=== PATIENT | male | born 1980 | race African-American/Black ===

== ENCOUNTER 2016-10-14 08:32 | Emergency (ER) | payer SELFPAY ==
[2016-10-14] MEDS ORDERED: Ibuprofen 800 MG TAB ONE (08:58)
--- NOTE | 2016-10-14 09:11 | ERRECORD ---
[facility] EMERGENCY RECORD HPI TOOTHACHE (09:00 JL) CHIEF COMPLAINT: Patient presents for evaluation of Pt with 2 days of right jaw/gum pain. Noted a small clogged pore on the jaw in the same area with some tednerness but most of the pain in deeper. He dscribes pressure on his lower teeth. No fevers or chills. He had some nausea last pm that resolved. Tried tylenol and excedrin but no relief. HISTORIAN: History provided by patient. LOCATION: Symptoms are localized. TEETH: lower right 3rd molar (#32),. QUALITY: Pain is dull in nature. TIME COURSE: Gradual onset of symptoms, Symptoms are worsening, are constant. ASSOCIATED WITH: No associated chills, No associated dysphagia, Associated with facial pain, No associated facial swelling, No associated fever, No associated recent dental procedure, No associated vomiting. EXACERBATED BY: Patient's condition exacerbated by nothing. RELIEVED BY: Patient's condition relieved by nothing. ROS (09:02 [facility]) CONSTITUTIONAL: Historian denies chills, denies fever. ENT: Historian denies rhinorrhea, denies sore throat. RESPIRATORY: Historian denies cough, denies shortness of breath. GI: Historian denies abdominal pain, reports nausea, denies vomiting. resolved. GENITOURINARY MALE: Historian denies dysuria, denies hematuria. NEUROLOGIC: Historian denies dizziness, denies headache. PAST MEDICAL HISTORY MEDICAL HISTORY: Past medical history includes pulmonary disease, asthma. (08:43 [facility]) MALE SURGICAL HISTORY: Patient has no surgical history. (08:43 [facility]) PSYCHIATRIC HISTORY: No previous psychiatric history. (08:43 [facility]) SOCIAL HISTORY: Patient denies alcohol use, Patient denies drug use, Patient currently uses tobacco, smokes cigarettes, Light tobacco smoker. (08:43 [facility]) FAMILY HISTORY: No known family hisotry. (08:43 [facility]) NOTES: Nursing records reviewed, Agree with nursing records. (09:04 JL) KNOWN ALLERGIES NONE (Unconfirmed) CURRENT MEDICATIONS No recorded medications VITAL SIGNS (08:38 [facility]) VITAL SIGNS: BP: 124/86, Pulse: 71, Resp: 18, Temp: 98.3 (Oral), Pain: 5, O2 sat: 98 on Room Air, Time: 10/14/2016 08:38. &a-1R&a+25V*p+0X*l9110Y*c152B*c15G*c2P*p-0X&a-25V&a+1RName: Ethan Camilo : M36 MedRec: [id number] AcctNum: [id number] Prepared: FriOct 14, 2016 09:09 by Interface Page [address] [facility] EMERGENCY RECORD PHYSICAL EXAM (09:02 [facility]) CONSTITUTIONAL: Vital signs reviewed, Patient appears non toxic, Patient alert and oriented to person, place and time. EYES: Eye exam included findings of eyelids normal to inspection, Pupils equally round and reactive to light, Conjunctiva normal. ENT: Pharynx exam normal, Uvula exam normal, Tonsil exam normal, Mouth exam normal, mucous membranes moist, Teeth with, Pt was indicating his last molar but on exam his wisdom tooth on the right is just peeking through the gum. Minimal swelling. No redness. No cavity. With palpation of the tip of the wisdom tooth pt reports that is exactly where his pain is coming from, he just hadn't pushed there before and couldn't identify it. NECK: Neck exam included findings of normal range of motion, Trachea midline, no cervical adenopathy. RESPIRATORY CHEST: Respiratory exam included findings of no respiratory distress, Breath sounds clear, No wheezing, No rales, No rhonchi, Chest exam included findings of chest movement symmetrical. CARDIOVASCULAR: Cardiovascular exam included findings of heart rate regular rate and rhythm, Heart sounds normal. NEURO: Luiz coma scale 15, Neuro exam findings include patient oriented to person, place and time, Speech normal. PSYCHIATRIC: Normal affect. MEDICATION ADMINISTRATION SUMMARY Drug Name: ibuprofen, Dose Ordered: 800 mg, Route: Oral, Status: Given, Time: 08:59 10/14/2016, Detailed record available in Medication Service section. DOCTOR NOTES (09:05 [facility]) TEXT: Instructed the patient to f/u with dentist to eval his wisdom tooth to see if it can come through or if it needs removal. PROBLEM LIST No recorded problems DIAGNOSIS (08:59 [facility]) FINAL: PRIMARY: Toothache. PRESCRIPTION (08:58 JL) acetaminophen-codeine: TABLET : 300 mg-30 mg : ORAL : Quantity: 1-2 Unit: tab(s) Route: ORAL Schedule: every 6 hours PRN Dispense: 15 May substitute. Refills: No Refills . NOTES: No Refills. ibuprofen: TABLET : 800 mg : ORAL : Quantity: 1 Unit: tab(s) Route: ORAL Schedule: every 8 hours PRN Dispense: 30 May substitute. Refills: No Refills . NOTES: ^s=No Refills &a-1R&a+25V*p+0X*e1713B*c152B*c15G*c2P*p-0X&a-25V&a+1RName: Ethan Camilo : M36 MedRec: [id number] AcctNum: [id number] Prepared: FriOct 14, 2016 09:09 by Interface Page [address] [facility] EMERGENCY RECORD No Refills. DISPOSITION PATIENT: Disposition Type: Discharge, Disposition: *Discharge Home. (08:59 PAULINE) Patient left the department. (09:05 [facility]) Crump: PAULINE=MD Pablo, Higinio [facility]=KIA Youssef, Zeynep &a-1R&a+25V*p+0X*a0289J*c152B*c15G*c2P*p-0X&a-25V&a+1RName: Ethan Camilo DOB: M[birth year] MedRec: [id number] AcctNum: [id number] Prepared: FriOct 14, 2016 09:09 by Interface Page 3 of 3 pMD MTDD
--- NOTE | 2016-10-14 09:18 | PICIS ---
[facility] EMERGENCY RECORD TRIAGE (FriOct 14, 2016 08:41 [facility]) TRIAGE NOTES: Pt reports head and R jaw pain for 2 days. He has been taking OTC pain medication @ home and the pain is becoming intractable. Reporting a "squishy" feeling over his R jaw. (FriOct 14, 2016 08:41 [facility]) PATIENT: NAME: Ethan Camilo, AGE: 36, GENDER: male, : [facility] 1980, TIME OF GREET: FriOct 14, 2016 08:33, PREFERRED LANGUAGE: Kinyarwanda, ETHNICITY: Not or , ECODE BILLING MAP: [facility], SSN: [id number], Zip Code: [address], PHONE: , , , PERSON ID: [id number], PCP: Lopez [facility]. (FriOct 14, 2016 08:41 [facility]) KG WEIGHT: 74.8 (est.). (08:59 [facility]) COMPLAINT: RIGHT SIDE HEAD AND JAW PAIN. (FriOct 14, 2016 08:41 [facility]) ADMISSION: URGENCY: 4 Non Urgent, ADMISSION SOURCE: Home, TRANSPORT: Walk-in, BED: TRIAGE. (FriOct 14, 2016 08:41 [facility]) IMMUNIZATIONS: Flu vaccine not up to date, Tetanus not up to date. (08:43 [facility]) SIRS SCORING: Heart Rate 55-109 (0), Temp range 96.8-101.1 (0), respiratory rate 12-24 (0), Mental Status altered: no (0). (08:43 [facility]) TRIAGE SCREENING: Patient denies suicidal ideation, Patient denies presence of domestic violence. (08:43 [facility]) PROVIDERS: TRIAGE NURSE: Zeynep Youssef RN. (FriOct 14, 2016 08:41 [facility]) VITAL SIGNS: BP 124/86, Pulse 71, Resp 18, Temp 98.3, (Oral), Pain 5, O2 Sat 98, on Room Air, Time 10/14/2016 08:38. (08:38 [facility]) PREVIOUS VISIT ALLERGIES: NONE. (FriOct 14, 2016 08:41 [facility]) NONE. (08:43 [facility]) KNOWN ALLERGIES NONE (Unconfirmed) CURRENT MEDICATIONS No recorded medications VITAL SIGNS (08:38 [facility]) VITAL SIGNS: BP: 124/86, Pulse: 71, Resp: 18, Temp: 98.3 (Oral), Pain: 5, O2 sat: 98 on Room Air, Time: 10/14/2016 08:38. NURSING ASSESSMENT: HEADACHE (08:53 [facility]) CONSTITUTIONAL: Complex assessment performed, Patient arrives ambulatory, Gait steady, History obtained from patient, Patient appears comfortable, Patient cooperative, Patient alert, Oriented to person, place and time, Skin warm, Skin dry, Skin normal in color, Mucous membranes pink, Mucous membranes moist, Patient is well-groomed, Pt reporting R sided jaw, upper neck, and head pain for 2 days. He has been taking OTC NSAIDS @ home but pain is becoming intractable. Pt als reporting tenderness over R lymph nodes over jaw. &a-1R&a+25V*p+0X*e8495X*c152B*c15G*c2P*p-0X&a-25V&a+1RName: Ethan Camilo : M36 MedRec: [id number] AcctNum: [id number] Prepared: FriOct 14, 2016 09:16 by Interface Page 1 of 5 pMD [facility] EMERGENCY RECORD PAIN: R jaw, on a scale 0-10 patient rates pain as 5. HEADACHE: Headache assessment findings include headache not worst of life. NEURO: Pupils equally round and reactive to light, Able to close eyes, Face symmetrical, Speech normal, GCS:, Eye opening: (4) - Spontaneous, Verbal: (5) - Oriented/conversive, Motor: (6) - Obeys commands/Spontaneous. SAFETY: Side rails up, Cart/Stretcher in lowest position, Call light within reach, Hospital ID band on. NURSING PROCEDURE: DISCHARGE NOTE (09:01 [facility]) DISCHARGE: Patient discharged to home, ambulating without assistance, driving self, unaccompanied, Discharge instructions given to patient, Simple or moderate discharge teaching performed, by KIA Adhikari, Patient treated and evaluated by physician. BELONGINGS: Belongings and valuables with patient upon arrival to the Emergency Department include:, Belongings and valuables with patient at time of discharge include:. SAFETY: Side rails up, Cart/Stretcher in lowest position, Call light within reach, Hospital ID band on. MEDICATION ADMINISTRATION SUMMARY Drug Name: ibuprofen, Dose Ordered: 800 mg, Route: Oral, Status: Given, Time: 08:59 10/14/2016, Detailed record available in Medication Service section. MEDICATION SERVICE (08:59 [facility]) ibuprofen: Order: ibuprofen - Dose: 800 mg : Oral Ordered by: Higinio Shah MD Entered by: Higinio Shah MD FriOct 14, 2016 08:58 , Acknowledged by: Zeynep Youssef RN FriOct 14, 2016 08:59 Documented as given by: Zeynep Youssef RN FriOct 14, 2016 08:59 Patient, Medication, Dose, Route and Time verified prior to administration. Amount given: 800 mg, Site: Medication administered P.O., Correct patient, time, route, dose and medication confirmed prior to administration, Patient advised of actions and side-effects prior to administration, Allergies confirmed and medications reviewed prior to administration, Patient tolerated procedure well, Administered by KIA Adhikari, Patient in position of comfort, Side rails up, Cart in lowest position, Call light in reach. HPI TOOTHACHE (09:00 [facility]) CHIEF COMPLAINT: Patient presents for evaluation of Pt with 2 days of right jaw/gum pain. Noted a small clogged pore on the jaw in the same area with some tednerness but most of the pain in deeper. He dscribes pressure on his lower teeth. No fevers or chills. He had some nausea last pm that resolved. Tried tylenol and excedrin but no relief. HISTORIAN: History provided by patient. LOCATION: Symptoms are localized. TEETH: &a-1R&a+25V*p+0X*d3638P*c152B*c15G*c2P*p-0X&a-25V&a+1RName: Ethan Camilo : M36 MedRec: [id number] AcctNum: [id number] Prepared: FriOct 14, 2016 09:16 by Interface Page 2 of 5 pMD [facility] EMERGENCY RECORD lower right 3rd molar (#32),. QUALITY: Pain is dull in nature. TIME COURSE: Gradual onset of symptoms, Symptoms are worsening, are constant. ASSOCIATED WITH: No associated chills, No associated dysphagia, Associated with facial pain, No associated facial swelling, No associated fever, No associated recent dental procedure, No associated vomiting. EXACERBATED BY: Patient's condition exacerbated by nothing. RELIEVED BY: Patient's condition relieved by nothing. ROS (09:02 [facility]) CONSTITUTIONAL: Historian denies chills, denies fever. ENT: Historian denies rhinorrhea, denies sore throat. RESPIRATORY: Historian denies cough, denies shortness of breath. GI: Historian denies abdominal pain, reports nausea, denies vomiting. resolved. GENITOURINARY MALE: Historian denies dysuria, denies hematuria. NEUROLOGIC: Historian denies dizziness, denies headache. PAST MEDICAL HISTORY MEDICAL HISTORY: Past medical history includes pulmonary disease, asthma. (08:43 [facility]) MALE SURGICAL HISTORY: Patient has no surgical history. (08:43 [facility]) PSYCHIATRIC HISTORY: No previous psychiatric history. (08:43 [facility]) SOCIAL HISTORY: Patient denies alcohol use, Patient denies drug use, Patient currently uses tobacco, smokes cigarettes, Light tobacco smoker. (08:43 [facility]) FAMILY HISTORY: No known family hisotry. (08:43 [facility]) NOTES: Nursing records reviewed, Agree with nursing records. (09:04 [facility]) PHYSICAL EXAM (09:02 [facility]) CONSTITUTIONAL: Vital signs reviewed, Patient appears non toxic, Patient alert and oriented to person, place and time. EYES: Eye exam included findings of eyelids normal to inspection, Pupils equally round and reactive to light, Conjunctiva normal. ENT: Pharynx exam normal, Uvula exam normal, Tonsil exam normal, Mouth exam normal, mucous membranes moist, Teeth with, Pt was indicating his last molar but on exam his wisdom tooth on the right is just peeking through the gum. Minimal swelling. No redness. No cavity. With palpation of the tip of the wisdom tooth pt reports that is exactly where his pain is coming from, he just hadn't pushed there before and couldn't identify it. NECK: Neck exam included findings of normal range of motion, Trachea midline, no cervical adenopathy. RESPIRATORY CHEST: Respiratory exam included findings of no respiratory distress, Breath sounds clear, No wheezing, No rales, No rhonchi, Chest exam included findings of chest movement symmetrical. &a-1R&a+25V*p+0X*d1912E*c152B*c15G*c2P*p-0X&a-25V&a+1RName: Ethan Camilo : M36 MedRec: [id number] AcctNum: [id number] Prepared: FriOct 14, 2016 09:16 by Interface Page 3 of 5 pMD [facility] EMERGENCY RECORD CARDIOVASCULAR: Cardiovascular exam included findings of heart rate regular rate and rhythm, Heart sounds normal. NEURO: Luiz coma scale 15, Neuro exam findings include patient oriented to person, place and time, Speech normal. PSYCHIATRIC: Normal affect. EVENTS TRANSFER: Triage to Emergency Triage. (08:41 [facility]) Emergency Triage to Emergency Room -03. (08:42 [facility]) Removed from Emergency Emergency Room -03. (09:05 [facility]) DOCTOR NOTES (09:05 [facility]) TEXT: Instructed the patient to f/u with dentist to eval his wisdom tooth to see if it can come through or if it needs removal. PROBLEM LIST No recorded problems DIAGNOSIS (08:59 [facility]) FINAL: PRIMARY: Toothache. DISPOSITION PATIENT: Disposition Type: Discharge, Disposition: *Discharge Home. (08:59 JL) Patient left the department. (09:05 [facility]) INSTRUCTION (08:59 [facility]) DISCHARGE: TOOTH PAIN. FOLLOWUP: [facility], Clinic, [address] [place] [address] , , Follow up with Specialist in 7-10 days. SPECIAL: Follow up with a dentist. PRESCRIPTION (08:58 JL) acetaminophen-codeine: TABLET : 300 mg-30 mg : ORAL : Quantity: 1-2 Unit: tab(s) Route: ORAL Schedule: every 6 hours PRN Dispense: 15 May substitute. Refills: No Refills . NOTES: No Refills. ibuprofen: TABLET : 800 mg : ORAL : Quantity: 1 Unit: tab(s) Route: ORAL Schedule: every 8 hours PRN Dispense: 30 May substitute. Refills: No Refills . NOTES: ^s=No Refills No Refills. IMAGING (09: [facility]) *SUPPLY CHARGE SHEET: Image captured from scanner. *DISCHARGE INSTRUCTIONS RECEIPT: Image captured from scanner. ADMIN (: PAULINE) &a-1R&a+25V*p+0X*j8192G*c152B*c15G*c2P*p-0X&a-25V&a+1RName: Ethan Camilo : [facility] MedRec: [id number] AcctNum: [id number] Prepared: FriOct 14, 2016 09:16 by Interface Page 4 of 5 pMD [facility] EMERGENCY RECORD DIGITAL SIGNATURE: MD Pablo, Higinio. Crump: PAULINE=MD Shah Joshua [facility]=KIA Youssef, [place] &a-1R&a+25V*p+0X*p2623F*c152B*c15G*c2P*p-0X&a-25V&a+1RName: Ethan Camilo : 6 MedRec: [id number] AcctNum: [id number] Prepared: FriOct 14, 2016 09:16 by Interface Page 5 of 5 pMD MTDD
== END 2016-10-14 09:05 | disposition home or self-care (01) ==
LOC: NAV ERS 08:32
DX: K08.89 Other specified disorders of teeth and supporting structures (principal); J45.909 Unspecified asthma, uncomplicated; F17.210 Nicotine dependence, cigarettes, uncomplicated
CPT/HCPCS: 99283

== ENCOUNTER 2017-11-09 06:34 | Emergency (ER) | payer SELFPAY ==
[2017-11-09] MEDS ORDERED: Ondansetron ODT 4 MG TAB ONE (07:20)
[2017-11-09] MEDS ORDERED: Ibuprofen 800 MG TAB ONE (07:20)
[2017-11-09] MEDS ORDERED: Oseltamivir 75 MG CAP ONE (07:24)
== END 2017-11-09 07:33 | disposition home or self-care (01) ==
LOC: NAV ERS 06:34
DX: J11.1 Influenza due to unidentified influenza virus with other respiratory manifestations (principal); J45.909 Unspecified asthma, uncomplicated; F17.210 Nicotine dependence, cigarettes, uncomplicated
CPT/HCPCS: 99283; Q0162